=== PATIENT | female | born 1975 | race Caucasian/White ===

== ENCOUNTER 2021-05-29 17:11 | Inpatient (IN) | payer BC ==
[~2021-05-29] VITALS: Ht 172.7 cm; Wt 71.3 kg
[2021-05-29] MEDS ORDERED: HYDROmorphone 2 MG/ML, 1ML IV ONE (17:30)
[2021-05-29] MEDS ORDERED: SODIUM CHLORIDE 0.9% 1,000 ML IV ONE ×2 (17:30→19:00)
[2021-05-29] MEDS ORDERED: ONDANSETRON 2MG/ML, 2ML IVPush ONE (17:30)
[2021-05-29] MEDS ORDERED: SODIUM CHLORIDE FLUSH 10ML SYR IVF ONE (17:30)
[2021-05-29] MEDS ORDERED: TAMO20TA PO (17:36)
[2021-05-29] MEDS ORDERED: VENL37.52 PO (17:36)
[2021-05-29] MEDS ORDERED: [UNRECOGNIZED DRUG - CODE] PO (17:36)
[2021-05-29] MEDS ORDERED: VITAMIN D (17:36)
[2021-05-29] MEDS ORDERED: HYDR-826 PO (17:36)
[2021-05-29] MEDS ORDERED: ASPI81TA45 PO (17:36)
--- NOTE | 2021-05-29 18:45 | NUR ---
PT AT MRI
--- NOTE | 2021-05-29 18:50 | NUR ---
REPORT RECIEVED FROM CHANG ABERNATHY
--- NOTE | 2021-05-29 18:50 | NUR ---
REPORT GIVEN TO AGUEDA ABERNATHY. TRANSFER OF CARE.
[2021-05-29] MEDS ORDERED: MORPHINE SULFATE 4 MG/ML, 1ML IVPush PRN (19:00)
[2021-05-29] MEDS ORDERED: SODIUM CHLORIDE FLUSH 10ML SYR IVF PRN (19:00)
[2021-05-29] MEDS ORDERED: ONDANSETRON 2MG/ML, 2ML IVPush PRN ×2 (19:00→22:00)
[2021-05-29] MEDS ORDERED: ONDANSETRON 2MG/ML, 2ML ONE (19:26)
[2021-05-29] MEDS ORDERED: HYDROmorphone 2 MG/ML, 1ML ONE (19:26)
--- NOTE | 2021-05-29 19:43 | NUR ---
Pt to be admitted to [facility], room 346. Report called to THANG.
[2021-05-29 20:17] VITALS: BP 115/74
[2021-05-29] MEDS ORDERED: PROMETHAZINE 25 MG/ML, 1ML IM PRN (22:00)
[2021-05-29] MEDS: LACTATED RINGERS 1,000 ML IV SCH (22:14)
[2021-05-30] MEDS: HYDROmorphone 2 MG/ML, 1ML IVPush PRN ×3 (00:12→07:53)
[2021-05-30 00:33] VITALS: BP 115/73
[2021-05-30] MEDS: LACTATED RINGERS 1,000 ML IV SCH ×2 (05:44→20:00)
[2021-05-30 05:53] LABS: BASOPHILS % (AUTO) 0 % (0-1); EOSINOPHILS % (AUTO) 0 % (1-7); LYMPHOCYTES % (AUTO) 13 % (22-44); MEAN CORPUSCULAR HEMOGLOBIN 31.1 pg (27.0-34.8); MEAN CORPUSCULAR HGB CONC 33.5 g/dL (32.4-35.8); MEAN PLATELET VOLUME 7.9 fL (7.4-10.4); MONOCYTES % (AUTO) 5 % (2-9); NEUTROPHILS % (AUTO) 82 % (42-75); PLATELET COUNT 241 x10^3/uL (130-400); RED BLOOD COUNT 3.62 x10^6/uL (3.82-5.3); RED CELL DISTRIBUTION WIDTH 14.9 % (9.6-15.2)
[2021-05-30 06:06] LABS: ALANINE AMINOTRANSFERASE 404 U/L (12-78); ALBUMIN 2.8 g/dL (3.4-5.0); ANION GAP 9 mmol/L (5-15); CHLORIDE 116 mmol/L (98-107); CREATININE 0.36 mg/dL (0.55-1.02)
[2021-05-30 06:08] LABS: ALKALINE PHOSPHATASE 120 U/L (45-117); BILIRUBIN,TOTAL 0.5 mg/dL (0.2-1.0); TOTAL PROTEIN 5.9 g/dL (6.4-8.2)
[2021-05-30 07:15] VITALS: BP 108/69
[2021-05-30] MEDS: CEFTRIAXONE 1,000 MG in DEXTROSE 5% 50 ML IV SCH (09:03)
[2021-05-30] MEDS: ENOXAPARIN 40 MG/0.4 ML SQ SCH (09:04)
[2021-05-30] MEDS: ACETAMINOPHEN 325 MG TABLET PO PRN ×3 (09:13→22:40)
[2021-05-30 09:52] LABS: INTERNATIONAL NORMALIZED RATIO 1.06 (0.93-1.1); PROTHROMBIN TIME 11.3 Seconds (9.6-11.5)
[2021-05-30] MEDS: KETOROLAC 30 MG/1 ML IVPush PRN ×2 (12:33→19:15)
[2021-05-30] MEDS: METRONIDAZOLE PMX 500MG/100ML 100 ML IV SCH ×2 (12:36→22:51)
[2021-05-30 14:02] VITALS: BP 107/73
[2021-05-30] MEDS ORDERED: EPINEPHRINE 1 MG/ML, 1ML ONE ×2 (15:55→17:24)
[2021-05-30] MEDS ORDERED: BUPIVACAINE/PF 0.5% ONE ×2 (15:55→17:24)
[2021-05-30] MEDS ORDERED: PROMETHAZINE 25 MG/ML, 1ML IVPush PRN (17:00)
[2021-05-30] MEDS ORDERED: DIPHENHYDRAMINE 50 MG/ML, 1ML IVPush PRN (17:00)
[2021-05-30] MEDS ORDERED: OXYcodone 5 MG/5 ML ORAL.SOL UDC PO PRN (17:00)
[2021-05-30] MEDS ORDERED: HYDROmorphone 1 MG/ML, 1ML INJ IVPush PRN (17:00)
[2021-05-30] MEDS ORDERED: hydrALAzine 20 MG/ML, 1ML IV PRN (17:00)
[2021-05-30] MEDS ORDERED: FENTANYL PF 100 MCG/2ML IV PRN (17:00)
[2021-05-30] MEDS ORDERED: LABETALOL 5MG/ML, 20ML IV PRN (17:00)
[2021-05-30] MEDS ORDERED: MEPERIDINE/PF 25MG/0.5ML IVPush PRN (17:00)
[2021-05-30] MEDS ORDERED: HALOPERIDOL 5 MG/ML IV PRN (17:00)
[2021-05-30] MEDS ORDERED: FENTANYL PF 250 MCG/5ML ONE (17:43)
[2021-05-30] MEDS ORDERED: MIDAZOLAM 1 MG/ML, 2ML ONE (17:43)
[2021-05-30] MEDS ORDERED: CEFOTETAN 2 GM ONE (17:57)
[2021-05-30] MEDS ORDERED: PROPOFOL 10 MG/ML, 20ML ONE (18:24)
[2021-05-30] MEDS ORDERED: NEOSTIGMINE 1 MG/ML, 10ML ONE (18:24)
[2021-05-30] MEDS ORDERED: ONDANSETRON 2MG/ML, 2ML ONE (18:24)
[2021-05-30] MEDS ORDERED: ROCURONIUM 10MG/ML,5ML ONE (18:24)
[2021-05-30] MEDS ORDERED: CEFAZOLIN 1,000 MG ONE (18:24)
[2021-05-30] MEDS ORDERED: SUCCINYLCHOLINE 20 MG/ML, 10ML ONE (18:24)
[2021-05-30] MEDS ORDERED: GLYCOPYRROLATE 0.2MG/1ML, 5ML ONE (18:24)
[2021-05-30] MEDS ORDERED: MEPERIDINE/PF 25MG/ML,1ML ONE (19:20)
[2021-05-30] MEDS ORDERED: KETOROLAC 30 MG/1 ML ONE (19:20)
[2021-05-30] MEDS ORDERED: OXYcodone 5 MG/5 ML ORAL.SOL UDC ONE (19:22)
[2021-05-30 19:48] VITALS: BP 105/67
[2021-05-30] MEDS ORDERED: TAMOXIFEN 10 MG TABLET PO SCH ×2 (21:00→22:00)
[2021-05-30] MEDS ORDERED: VENLAFAXINE XR 37.5MG CAP.ER.24H PO SCH ×3 (21:00→22:00)
[2021-05-31 01:14] VITALS: BP 98/65
[2021-05-31] MEDS: KETOROLAC 30 MG/1 ML IVPush PRN (01:21)
[2021-05-31] MEDS: METRONIDAZOLE PMX 500MG/100ML 100 ML IV SCH (07:04)
[2021-05-31 07:14] VITALS: BP 105/60
[2021-05-31 08:18] LABS: BASOPHILS % (AUTO) 0 % (0-1); EOSINOPHILS % (AUTO) 0 % (1-7); LYMPHOCYTES % (AUTO) 19 % (22-44); MEAN CORPUSCULAR HEMOGLOBIN 31.2 pg (27.0-34.8); MEAN CORPUSCULAR HGB CONC 33.5 g/dL (32.4-35.8); MEAN PLATELET VOLUME 7.9 fL (7.4-10.4); MONOCYTES % (AUTO) 7 % (2-9); NEUTROPHILS % (AUTO) 74 % (42-75); PLATELET COUNT 228 x10^3/uL (130-400); RED BLOOD COUNT 3.49 x10^6/uL (3.82-5.3); RED CELL DISTRIBUTION WIDTH 14.8 % (9.6-15.2)
[2021-05-31 08:27] LABS: ALBUMIN 2.7 g/dL (3.4-5.0); CALCIUM 8.2 mg/dL (8.5-10.1); CHLORIDE 109 mmol/L (98-107)
[2021-05-31 08:32] LABS: ALANINE AMINOTRANSFERASE 293 U/L (12-78); ALKALINE PHOSPHATASE 105 U/L (45-117); ANION GAP 7 mmol/L (5-15); BILIRUBIN,TOTAL 0.5 mg/dL (0.2-1.0); CREATININE 0.54 mg/dL (0.55-1.02); TOTAL PROTEIN 6.1 g/dL (6.4-8.2)
[2021-05-31] MEDS: ENOXAPARIN 40 MG/0.4 ML SQ SCH (09:02)
[2021-05-31] MEDS: CEFTRIAXONE 1,000 MG in DEXTROSE 5% 50 ML IV SCH (09:02)
[2021-05-31 12:30] VITALS: BP 101/69
[2021-05-31] MEDS: LACTATED RINGERS 1,000 ML IV SCH (12:40)
== END 2021-05-31 16:00 | disposition home or self-care (01) | DRG 417 ==
LOC: ED 18:53 → EDIP 19:00 → 3N 20:11
PROVIDERS: ADMIT Family Medicine; ATTEND Internal Medicine
PROC: 0FT44ZZ Resection of Gallbladder, Percutaneous Endoscopic Approach (ICD-10-PCS; principal; 2021-05-30 17:30)
DX: K80.61 Calculus of gallbladder and bile duct with cholecystitis, unspecified, with obstruction (principal); K85.10 Biliary acute pancreatitis without necrosis or infection; E87.0 Hyperosmolality and hypernatremia; R74.01 Elevation of levels of liver transaminase levels; Z20.822 Contact with and (suspected) exposure to COVID-19; F32.9 Major depressive disorder, single episode, unspecified; Z80.3 Family history of malignant neoplasm of breast; Z87.891 Personal history of nicotine dependence; Z90.12 Acquired absence of left breast and nipple
CPT/HCPCS: 36415; 96374; 96375; 99285; S0020; 74181; 80053; 83690; 84703; 85025; 85610; 87635; 88304; C1729; G0378; J0171; J0690; J0696; J1170; J1650; J1885; J2250; J2405; J2704; J2710; J3010; J0330; J7030; J7120